=== PATIENT | male | born 1970 | race Asian ===

== ENCOUNTER 2019-10-04 06:38 | Day surgery (SDC) | payer OTHER ==
--- NOTE | 2019-10-02 10:33 | HP ---
DATE OF ADMISSION: 10/04/2019 Patient to be admitted through the [facility] in the near future, date to be determined. HISTORY: This is a 49-year-old man who works for the [employer], who several months ago developed a bulge at the level of the right groin. It is occasionally bothersome. He is concerned that he does lift rather heavy things on a regular basis and has opted to move in the direction of management. No underlying GI, , or respiratory complaints to suggest predisposition to hernia formation. PAST MEDICAL HISTORY: Significant for GERD as well as diabetes. No known history of heart disease, hypertension, respiratory, renal, or hepatic insufficiency. PAST SURGICAL HISTORY: Nil. ALLERGIES: None known. REGULAR MEDICATIONS: Metformin, Januvia, omeprazole. SOCIAL HISTORY: Negative tobacco, negative alcohol. FAMILY HISTORY: Both parents history of diabetes and hypertension. REVIEW OF SYSTEMS: Otherwise nil. PHYSICAL EXAMINATION: With the patient examined in the erect position, there are obvious bilateral inguinal hernias, with the right larger than the left. They are both reducible. Scrotum is unremarkable. The abdomen is soft and nontender. IMPRESSION: Bilateral inguinal hernias, right larger and somewhat symptomatic. PLAN: Bilateral laparoscopic inguinal hernia repair with mesh. If the procedure cannot be accomplished laparoscopically, patient understands he will undergo an open right inguinal hernia repair with mesh. Indications, alternatives, possible complications reviewed. Consent obtained. Issues that relate to the mesh, which include but are not limited to infection, migration, and neuritides is explained. Consent obtained. Patient to be seen preoperatively by his PMD, Viktoriya Bhandari. Please refer to his notes for the medical details. Joaquin [id number] cc: MD SCOTT Miller
[2019-10-04] MEDS ORDERED: TAMSULOSIN HCL 0.4 MG CAP ONE (07:11)
[2019-10-04] MEDS ORDERED: MIDAZOLAM HCL 2 MG/2 ML SINGLE DOSE VIAL ONE (07:59)
[2019-10-04] MEDS ORDERED: BUPIVACAINE HCL/PF 0.5% (5 MG/ML) 30 ML VIAL IJ ONE (07:59)
[2019-10-04 08:00] VITALS: BMI 26.2
[2019-10-04] MEDS ORDERED: DEXAMETHASONE SOD PHOSPHATE/PF 10 MG/ML SDV ONE (09:16)
[2019-10-04] MEDS ORDERED: ROCURONIUM BROMIDE 50 MG/5 ML SYRINGE ONE (09:27)
[2019-10-04] MEDS ORDERED: PROPOFOL 20 ML ONE ×2 (09:27→09:50)
[2019-10-04] MEDS ORDERED: ceFAZolin SODIUM 1 GM VIAL ONE (09:38)
[2019-10-04] MEDS ORDERED: ONDANSETRON 4 MG/2 ML VIAL ONE (09:38)
[2019-10-04] MEDS ORDERED: DEXAMETHASONE SOD PHOSPHATE 4 MG/1 ML VIAL ONE (09:38)
[2019-10-04] MEDS ORDERED: NEOSTIGMINE METHYLSULFATE 0.5 MG/ML - 10 ML MDV ONE (10:24)
[2019-10-04] MEDS ORDERED: GLYCOPYRROLATE 0.2 MG/1 ML VIAL ONE (10:25)
[2019-10-04] MEDS ORDERED: oxyCODONE HCL 5 MG TABLET PO PRN (11:12)
[2019-10-04] MEDS ORDERED: ONDANSETRON 4 MG/2 ML VIAL IVPUSH PRN (11:12)
[2019-10-04] MEDS ORDERED: LACTATED RINGERS SOLUTION 1,000 ML IV SCH (11:15)
--- NOTE | 2019-10-04 11:45 | OP ---
DATE OF OPERATION: 10/04/2019 PREOPERATIVE DIAGNOSIS: Bilateral inguinal hernias. POSTOPERATIVE DIAGNOSIS: Bilateral direct inguinal hernias. PROCEDURE: Bilateral laparoscopic inguinal hernia repair with mesh. OPERATING SURGEON: Abhilash Salazar M.D. APPLICATION PROJECT LEADER: Gage Smith M.D. ANESTHESIA: Nilsa Weems M.D. (general) HISTORY: [id number] man who presents with obvious bilateral inguinal hernias for laparoscopic bilateral inguinal hernia repair with mesh. Indications, alternatives, possible complications reviewed. Consent obtained. DESCRIPTION OF PROCEDURE: With the patient in the supine position, under general anesthesia, the abdomen was prepped and draped in sterile fashion using chlorhexidine. Small incision was made just beneath the umbilicus and off to the right of the midline. The subcutaneous tissues were . The anterior rectus sheath on the right was identified and incised. The rectal muscle fibers were retracted laterally in both directions, exposing the preperitoneal space. A dissecting balloon was advanced in the preperitoneal space. The balloon was insufflated, creating a dissection. The balloon was removed, leaving the structural collar in place. The preperitoneal space was then insufflated to an adequate pressure and volume using CO2 gas. The camera lens was passed through this port and the preperitoneal space visualized. Under direct vision, an 11-mm port was placed in the midline midway between the umbilicus and the pubis. Exploration of the preperitoneal space allowed recognition of the anatomy. There were obvious bilateral direct inguinal hernias noted. There were small indirect sacs bilaterally. There were no femoral components noted. First directing our attention to the patient's right side, the cord was skeletonized and the indirect component was reduced. The right side was ultimately repaired with a piece of 4 x 6-inch Versatex mesh. The mesh was keyholed and placed in the preperitoneal space. It was fashioned anteriorly to the anterior abdominal wall using AbsorbaTacker and counter palpation. The mesh was tacked superiorly to the ileopubic tract. The mesh was tacked inferiorly to Jaquan ligament and the pubic tubercle. The keyholed leaf was wrapped around the cord and tacked in place, reconstructing the internal ring. Mesh covered both the direct and indirect spaces. Now directing our attention to the contralateral side, there were essentially mirror image findings. The indirect component was again reduced, and the left side was ultimately fixed with the same mesh and technique as described above for the right. At the completion of the repair, the mesh was noted to overlap in the midline. Adequate hemostasis was ensured. The low midline port was removed under direct vision and no bleeding identified. The camera lens and the structural periumbilical port were removed, and the gas was allowed to escape from the preperitoneal space. The fascia at each of the port sites was closed using interrupted 0 Vicryl sutures. Both skin wounds were closed using subcuticular 4-0 Biosyn sutures. COUNT: Needle, sponge, instrument count correct. ESTIMATED BLOOD LOSS: Minimal. SPECIMEN: None. IMPLANT: Mesh x2. DRAINS: None. Patient tolerated the procedure. The procedure was terminated. ABHILASH SALAZAR M.D. [id number] cc: Viktoriya Bhandari M.D. MTDD
[2019-10-04] MEDS ORDERED: KETOROLAC TROMETHAMINE 30 MG/1 ML VIAL ONE (12:00)
[2019-10-04] MEDS ORDERED: KETOROLAC TROMETHAMINE 30 MG/1 ML VIAL IVPUSH ONE (12:00)
[2019-10-04] MEDS ORDERED: oxyCODONE HCL 5 MG TABLET ONE ×2 (12:16→14:49)
[2019-10-04 15:54] VITALS: BP 105/62; PULSE 88; TEMP 98
== END 2019-10-04 15:55 | disposition home or self-care (01) ==
LOC: FASU 06:38
PROVIDERS: ATTEND Surgery
PROC: 0YUA4JZ Supplement Bilateral Inguinal Region with Synthetic Substitute, Percutaneous Endoscopic Approach (ICD-10-PCS; principal; 2019-10-04 09:56)
DX: K40.20 Bilateral inguinal hernia, without obstruction or gangrene, not specified as recurrent (principal); E11.9 Type 2 diabetes mellitus without complications; K21.9 Gastro-esophageal reflux disease without esophagitis
CPT/HCPCS: 82962; 86850; 86900; 86901; 94760